=== PATIENT | male | born 1980 | race Caucasian/White ===

== ENCOUNTER 2024-01-18 10:21 | Inpatient (IN) | payer MEDICAID, OTHER ==
[~2024-01-18] VITALS: Ht 170.2 cm; Wt 61.3 kg
[2024-01-18 11:03] LABS: HEMATOCRIT. 30.1 % (42.0-52.0); MEAN CORPUSCULAR HEMOGLOBIN 29.5 pg (28.0-32.0); MEAN CORPUSCULAR HGB CONC 33.3 g/dL (31.0-37.0); MEAN CORPUSCULAR VOLUME 88.6 fL (80.0-94.0); PLATELET 268 x1000/uL (130-400); RED CELL DISTRIBUTION WIDTH 14.1 % (11.6-14.6); WHITE BLOOD COUNT 9.3 x1000/uL (4.5-11.0)
[2024-01-18 11:07] LABS: DIFFERENTIAL COMMENT 1
[2024-01-18 11:15] LABS: CARBON DIOXIDE 14 mEq/L (21-32); CHLORIDE 109 mEq/L (98-107); SODIUM 132 mEq/L (136-145)
[2024-01-18 11:20] LABS: CREATININE 2.9 mg/dL (0.6-1.3)
[2024-01-18 11:21] LABS: D-DIMER 6.36 mg/L FEU (<0.50); GLUCOSE 137 mg/dL (70-105); PARTIAL THROMBOPLASTIN TIME 33.3 sec (23.4-31.0); PROTHROMBIN TIME 10.7 sec (9.6-11.0); UREA NITROGEN BLOOD 40 mg/dL (9-23)
[2024-01-18] MEDS: HYDRALAZINE 20MG/ML VIAL IV ONE (11:21)
[2024-01-18 11:22] LABS: ALANINE AMINOTRANSFERASE < 7 IU/L (10-49); ALBUMIN 2.3 g/dL (3.2-4.8); ASPARTATE AMINOTRANSFERASE 21 IU/L (<34); CREATINE KINASE 224 IU/L (46-171); LACTATE DEHYDROGENASE 316 IU/L (120-246)
[2024-01-18 11:23] LABS: BILIRUBIN TOTAL 0.3 mg/dL (0.1-1.0); PROTEIN TOTAL 5.2 g/dL (6.0-8.3)
[2024-01-18 11:25] LABS: BILIRUBIN DIRECT < 0.1 mg/dL (<=3.0)
[2024-01-18 11:28] LABS: ETHANOL BLOOD < 10 mg/dL (<10)
[2024-01-18] MEDS ORDERED: NITROGLYCERIN 50MG PREMIX 250 ML IV ONE (11:30)
[2024-01-18] MEDS: AZITHROMYCIN 500MG/250ML 250 ML IV SCH (11:56)
[2024-01-18] MEDS: FUROSEMIDE 40MG/4ML VIAL IVP ONE (11:56)
[2024-01-18] MEDS: CEFTRIAXONE 2GM/50ML 50 ML IV ONE (11:57)
[2024-01-18 11:59] LABS: PLATELET ESTIMATE NORMAL
[2024-01-18 12:00] LABS: BG BASE EXCESS -9.8 mmol/L (-2.0-2.0); BG CARBOXYHEMOGLOBIN 0.2 % (0.5-1.5); BG DEOXYHEMOGLOBIN 1.6 % (0.0-5.0); BG FRACTION INSPIRED OXYGEN 100; BG HCO3 ACT 16.1 mmol/L (22.0-26.0); BG METHEMOGLOBIN 0.1 % (0.0-1.5); BG OXYGEN SATURATION 98.4 % (92.0-98.5); BG OXYHEMOGLOBIN 98.1 % (94.0-97.0); BG PCO2 35.1 mmHg (35.0-45.0); BG PH 7.279 (7.350-7.450); BG PO2 220.4 mmHg (75.0-100.0); BG SAMPLE SITE RIGHT BRACHIAL; BG TOTAL HEMOGLOBIN 9.8 g/dL (12.0-18.0); BG VENT MODE MASK - NRB
[2024-01-18] MEDS ORDERED: NITROGLYCERIN 50MG PREMIX 250 ML IV PRN (12:00)
[2024-01-18] MEDS: NITROGLYCERIN 50MG PREMIX 250 ML IV ONE (12:13)
[2024-01-18 14:41] LABS: TROPONIN I HIGH SENSITIVITY 64 ng/L (3.0-53)
[2024-01-18 14:49] VITALS: BP 133/85; PULSE 90; RESP 14; TEMP 98.5
[2024-01-18] MEDS ORDERED: DIPHENHYDRAMINE 50MG/ML VIAL IV PRN (15:00)
[2024-01-18] MEDS ORDERED: IPRATROPIUM/ALBUTEROL 0.5-3(2.5)MG/3ML NEB HHN PRN (15:00)
[2024-01-18 15:15] VITALS: BP 133/85; PULSE 87; RESP 14; TEMP 98.4
[2024-01-18 15:45] LABS: TROPONIN I HIGH SENSITIVITY 58 ng/L (3.0-53)
[2024-01-18] MEDS: SODIUM CHLORIDE 0.9% 1,000 ML IV SCH ×2 (15:50→16:24)
[2024-01-18 16:00] VITALS: BP 169/69; PULSE 84; RESP 11; TEMP 97.8
[2024-01-18] MEDS ORDERED: INFLUENZA VACCINE 05/PF 0.5 ML SYRINGE IM ONE (16:00)
[2024-01-18] MEDS: SODIUM BICARBONATE 8.4% 1 MEQ/ML 50ML SYR IV NR (16:36)
[2024-01-18] MEDS: CLONIDINE 0.1MG TABLET PO PRN (16:37)
[2024-01-18 18:07] LABS: CREATINE KINASE 224 IU/L (46-171)
[2024-01-18 18:08] LABS: PHOSPHORUS 6.1 mg/dL (2.5-4.9)
[2024-01-18 19:49] LABS: CLARITY URINE TURBID (CLEAR); COLOR URINE YELLOW (YELLOW); GLUCOSE URINE 1+ (NEGATIVE); KETONES URINE NEGATIVE (NEGATIVE); LEUKOCYTE ESTERASE URINE TRACE (NEGATIVE); NITRITE URINE NEGATIVE (NEGATIVE); OCCULT BLOOD URINE 1+ (NEGATIVE); PH URINE 5.5 (4.5-8.0); PROTEIN URINE 4+ (NEGATIVE); SPECIFIC GRAVITY URINE 1.015 (1.005-1.030); UROBILINOGEN URINE 0.2 E.U./dL (0.2-1.0)
[2024-01-18 20:00] VITALS: BP_SYST 147; BP_DIAS 100; BP_DIAS 85; PULSE 84; RESP 17; RESP 23; TEMP 96.7; TEMP 98.4
[2024-01-18 20:01] LABS: *AMPHETAMINES SCREEN URINE NEGATIVE (NEGATIVE)
[2024-01-18 20:02] LABS: *BARBITURATES SCREEN URINE NEGATIVE (NEGATIVE); *BENZODIAZEPINES SCREEN URINE NEGATIVE (NEGATIVE); *COCAINE SCREEN URINE NEGATIVE (NEGATIVE); ECSTASY MDMA SCREEN URINE NEGATIVE (NEGATIVE); METHADONE URINE SCREEN NEGATIVE (NEGATIVE); OPIATES URINE SCREEN NEGATIVE (NEGATIVE); PHENCYCLIDINE URINE SCREEN NEGATIVE (NEGATIVE)
[2024-01-18 20:03] LABS: CREATININE URINE RANDOM 49.2 mg/dL
[2024-01-18 20:27] LABS: COARSE GRANULAR CASTS URINE 0-5 /lpf; FINE GRANULAR CASTS URINE 0-5 /lpf; HYALINE CASTS URINE 0-5 /lpf
[2024-01-18 20:28] LABS: RBC URINE 0-2 /hpf (0-2); WAXY CASTS URINE 0-5 /lpf
[2024-01-18 20:29] LABS: BACTERIA URINE 2+; SQUAMOUS EPITHELIAL CELL URINE 2+ /lpf (RARE/1+)
[2024-01-18 23:18] LABS: CREATINE KINASE 207 IU/L (46-171)
[2024-01-18 23:22] LABS: TROPONIN I HIGH SENSITIVITY 65 ng/L (3.0-53)
[2024-01-19 00:08] VITALS: BP 158/84; PULSE 87; RESP 17
[2024-01-19 04:00] VITALS: PULSE 85; RESP 17; TEMP 97.6
[2024-01-19 05:13] LABS: POTASSIUM 4.6 mEq/L (3.5-5.1)
[2024-01-19 05:15] LABS: CALCIUM 7.8 mg/dL (8.7-10.4)
[2024-01-19 05:19] LABS: BASOPHILS % 0.2 % (0.0-2.0); CREATININE 2.7 mg/dL (0.6-1.3); EOSINOPHILS % 1.1 % (0.0-5.0); HEMATOCRIT. 25.2 % (42.0-52.0); HEMOGLOBIN. 8.3 g/dL (14.0-18.0); LYMPHOCYTES % 14.4 % (20.0-50.0); MEAN CORPUSCULAR HEMOGLOBIN 29.1 pg (28.0-32.0); MEAN CORPUSCULAR HGB CONC 32.9 g/dL (31.0-37.0); MEAN CORPUSCULAR VOLUME 88.4 fL (80.0-94.0); MEAN PLATELET VOLUME 7.1 fl (7.4-10.4); MONOCYTES % 7.2 % (2.0-8.0); NEUTROPHILS % 77.1 % (40.0-76.0); PLATELET 232 x1000/uL (130-400); RED BLOOD CELL COUNT 2.85 mill/uL (4.7-6.1); RED CELL DISTRIBUTION WIDTH 13.9 % (11.6-14.6); WHITE BLOOD COUNT 8.4 x1000/uL (4.5-11.0)
[2024-01-19 08:00] VITALS: BP 156/88; PULSE 90; RESP 20; TEMP 97.1
[2024-01-19] MEDS: AMLODIPINE 5MG TABLET PO SCH (10:17)
[2024-01-19] MEDS: CARVEDILOL 3.125 MG TABLET PO SCH (10:17)
[2024-01-19] MEDS ORDERED: FUROSEMIDE 40MG/4ML VIAL IVP SCH (11:14)
[2024-01-19] MEDS: FUROSEMIDE 40MG/4ML VIAL IVP SCH (11:22)
[2024-01-19] MEDS: CEFTRIAXONE 1GM/50ML 50 ML IV SCH (11:23)
[2024-01-19 12:00] VITALS: BP 176/91; PULSE 63; RESP 18; TEMP 97.1
[2024-01-19] MEDS: AZITHROMYCIN 500MG/250ML IV SCH (12:03)
[2024-01-19 16:00] VITALS: BP 135/90; PULSE 54; RESP 17; TEMP 97.1
[2024-01-19] MEDS: ACETAMINOPHEN 325MG TABLET PO PRN (16:20)
[2024-01-19 16:29] LABS: CREATININE URINE RANDOM 28.2 mg/dL
[2024-01-19] MEDS: FUROSEMIDE 100MG/10ML VIAL IVP SCH (17:32)
[2024-01-19 20:00] VITALS: BP 146/89; PULSE 55; RESP 12; TEMP 92.2
[2024-01-20] VITALS (8 sets, daily range): BP systolic 148–171; BP diastolic 82–100; PULSE 55–71; RESP 10–15; TEMP 94–97.9
[2024-01-20 06:33] LABS: BASOPHILS % 0.2 % (0.0-2.0); EOSINOPHILS % 5.6 % (0.0-5.0); HEMATOCRIT. 25.7 % (42.0-52.0); HEMOGLOBIN. 8.9 g/dL (14.0-18.0); LYMPHOCYTES % 12.3 % (20.0-50.0); MEAN CORPUSCULAR HEMOGLOBIN 30.1 pg (28.0-32.0); MEAN CORPUSCULAR HGB CONC 34.5 g/dL (31.0-37.0); MEAN CORPUSCULAR VOLUME 87.1 fL (80.0-94.0); MEAN PLATELET VOLUME 7.6 fl (7.4-10.4); MONOCYTES % 8.2 % (2.0-8.0); NEUTROPHILS % 73.7 % (40.0-76.0); PLATELET 257 x1000/uL (130-400); RED BLOOD CELL COUNT 2.95 mill/uL (4.7-6.1); RED CELL DISTRIBUTION WIDTH 13.7 % (11.6-14.6)
[2024-01-20 06:36] LABS: POTASSIUM 4.2 mEq/L (3.5-5.1)
[2024-01-20 06:37] LABS: CALCIUM 7.5 mg/dL (8.7-10.4)
[2024-01-20 06:42] LABS: CREATININE 2.6 mg/dL (0.6-1.3)
[2024-01-20 13:06] LABS: ANTI-NUCLEAR ANTIBODIES DIRECT Negative (Negative)
[2024-01-20] MEDS: HYDRALAZINE HCL 100MG TABLET PO SCH (14:11)
[2024-01-20] MEDS: ONDANSETRON HCL 4MG/2ML INJ IV PRN (15:37)
[2024-01-20] MEDS: LACTOBACILLUS GG CAPSULE PO SCH (18:09)
[2024-01-21] VITALS (7 sets, daily range): BP systolic 97–163; BP diastolic 61–99; PULSE 59–79; RESP 9–23; TEMP 94.6–98.3
[2024-01-21 06:47] LABS: CALCIUM 7.5 mg/dL (8.7-10.4); POTASSIUM 3.9 mEq/L (3.5-5.1)
[2024-01-21 06:52] LABS: CREATININE 2.6 mg/dL (0.6-1.3)
[2024-01-21 07:12] LABS: BASOPHILS % 0.4 % (0.0-2.0); EOSINOPHILS % 6.8 % (0.0-5.0); HEMATOCRIT. 27.9 % (42.0-52.0); HEMOGLOBIN. 9.6 g/dL (14.0-18.0); LYMPHOCYTES % 23.8 % (20.0-50.0); MEAN CORPUSCULAR HEMOGLOBIN 29.9 pg (28.0-32.0); MEAN CORPUSCULAR HGB CONC 34.3 g/dL (31.0-37.0); MEAN CORPUSCULAR VOLUME 87.1 fL (80.0-94.0); MONOCYTES % 9.5 % (2.0-8.0); NEUTROPHILS % 59.5 % (40.0-76.0); PLATELET 249 x1000/uL (130-400); RED CELL DISTRIBUTION WIDTH 13.8 % (11.6-14.6); WHITE BLOOD COUNT 3.9 x1000/uL (4.5-11.0)
[2024-01-21 08:08] LABS: COMPLEMENT C3 98 mg/dL (82-167); COMPLEMENT C4 51 mg/dL (12-38)
[2024-01-21] MEDS: CITRIC ACID/SODIUM CITRATE SOLN 30ML UDC PO SCH (08:39)
[2024-01-21 09:56] LABS: IRON 59 ug/dL (65-175)
[2024-01-21 09:59] LABS: TOTAL IRON BINDING CAPACITY 311 ug/dl (250-425)
[2024-01-21] MEDS: AZITHROMYCIN 500 MG TABLET PO SCH (11:29)
[2024-01-21] MEDS: FUROSEMIDE 100MG/10ML VIAL IVP SCH (16:53)
[2024-01-22] VITALS (7 sets, daily range): BP systolic 140–166; BP diastolic 88–98; PULSE 68–81; RESP 12–20; TEMP 95.2–98
[2024-01-22 07:22] LABS: BASOPHILS % 0.5 % (0.0-2.0); EOSINOPHILS % 5.2 % (0.0-5.0); HEMATOCRIT. 27.6 % (42.0-52.0); HEMOGLOBIN. 9.3 g/dL (14.0-18.0); LYMPHOCYTES % 23.8 % (20.0-50.0); MEAN CORPUSCULAR HEMOGLOBIN 29.4 pg (28.0-32.0); MEAN CORPUSCULAR HGB CONC 33.7 g/dL (31.0-37.0); MEAN CORPUSCULAR VOLUME 87.1 fL (80.0-94.0); MEAN PLATELET VOLUME 7.4 fl (7.4-10.4); MONOCYTES % 8.5 % (2.0-8.0); PLATELET 284 x1000/uL (130-400); RED BLOOD CELL COUNT 3.17 mill/uL (4.7-6.1); RED CELL DISTRIBUTION WIDTH 13.7 % (11.6-14.6)
[2024-01-22 07:29] LABS: POTASSIUM 3.6 mEq/L (3.5-5.1)
[2024-01-22 07:30] LABS: CALCIUM 7.6 mg/dL (8.7-10.4)
[2024-01-22 07:36] LABS: CREATININE 2.7 mg/dL (0.6-1.3)
[2024-01-22] MEDS: METOLAZONE 2.5MG TABLET PO SCH (08:46)
[2024-01-22] MEDS ORDERED: CEFEPIME 2GM IN DEXT 5% 100ML IV SCH (11:15)
[2024-01-22 13:37] LABS: FERRITIN 210 ng/mL (22-322)
[2024-01-22 14:30] LABS: VITAMIN B12 SERUM > 2000 pg/mL (211-911)
[2024-01-22 17:31] LABS: HEPATITIS B SURFACE ANTIGEN NEGATIVE (Negative)
[2024-01-22 17:53] LABS: HEPATITIS C AB NON REACTIVE (Neg) (Negative)
[2024-01-22] MEDS: CEFEPIME 2GM/100ML 100 ML IV SCH (21:13)
[2024-01-23] VITALS: BP 139/86; PULSE 71; RESP 12; TEMP 97.7
[2024-01-23 04:00] VITALS: BP 122/89; PULSE 76; RESP 15; TEMP 97.8
[2024-01-23 06:10] LABS: CHLORIDE 104 mEq/L (98-107); POTASSIUM 3.6 mEq/L (3.5-5.1); SODIUM 134 mEq/L (136-145)
[2024-01-23 06:11] LABS: CALCIUM 7.6 mg/dL (8.7-10.4); CARBON DIOXIDE 22 mEq/L (21-32)
[2024-01-23 06:16] LABS: BASOPHILS % 0.5 % (0.0-2.0); CREATININE 2.6 mg/dL (0.6-1.3); EOSINOPHILS % 7.6 % (0.0-5.0); GLUCOSE 116 mg/dL (70-105); HEMATOCRIT. 25.8 % (42.0-52.0); HEMOGLOBIN. 8.8 g/dL (14.0-18.0); LYMPHOCYTES % 29.9 % (20.0-50.0); MEAN CORPUSCULAR HEMOGLOBIN 29.6 pg (28.0-32.0); MEAN CORPUSCULAR HGB CONC 34.1 g/dL (31.0-37.0); MEAN CORPUSCULAR VOLUME 86.7 fL (80.0-94.0); MONOCYTES % 8.9 % (2.0-8.0); NEUTROPHILS % 53.1 % (40.0-76.0); PLATELET 295 x1000/uL (130-400); RED BLOOD CELL COUNT 2.98 mill/uL (4.7-6.1); RED CELL DISTRIBUTION WIDTH 13.9 % (11.6-14.6); UREA NITROGEN BLOOD 44 mg/dL (9-23); WHITE BLOOD COUNT 3.6 x1000/uL (4.5-11.0)
[2024-01-23 06:17] LABS: ALANINE AMINOTRANSFERASE < 7 IU/L (10-49)
[2024-01-23 06:18] LABS: ALBUMIN 2.4 g/dL (3.2-4.8); ASPARTATE AMINOTRANSFERASE 13 IU/L (<34); BILIRUBIN TOTAL 0.2 mg/dL (0.1-1.0); PROTEIN TOTAL 4.9 g/dL (6.0-8.3)
[2024-01-23 08:00] VITALS: BP 151/90; PULSE 70; RESP 18; TEMP 98
[2024-01-23 12:00] VITALS: BP 133/90; PULSE 64; RESP 9; TEMP 98
[2024-01-23 16:00] VITALS: BP 93/65; PULSE 57; RESP 9; TEMP 98.1
[2024-01-23 20:00] VITALS: BP 161/96; PULSE 59; RESP 16; TEMP 92.7
[2024-01-23] MEDS: FUROSEMIDE 100MG/10ML VIAL IVP SCH (21:53)
[2024-01-24] VITALS: BP 97/65; PULSE 68; RESP 18; TEMP 97.6
[2024-01-24 04:00] VITALS: BP 114/74; PULSE 76; RESP 14; TEMP 98.4
[2024-01-24 06:05] LABS: POTASSIUM 3.5 mEq/L (3.5-5.1)
[2024-01-24 06:06] LABS: CALCIUM 7.3 mg/dL (8.7-10.4)
[2024-01-24 06:11] LABS: CREATININE 2.9 mg/dL (0.6-1.3)
[2024-01-24 06:26] LABS: BASOPHILS % 0.6 % (0.0-2.0); EOSINOPHILS % 6.9 % (0.0-5.0); HEMATOCRIT. 25.2 % (42.0-52.0); HEMOGLOBIN. 8.5 g/dL (14.0-18.0); LYMPHOCYTES % 26.7 % (20.0-50.0); MEAN CORPUSCULAR HEMOGLOBIN 29.3 pg (28.0-32.0); MEAN CORPUSCULAR HGB CONC 33.8 g/dL (31.0-37.0); MEAN CORPUSCULAR VOLUME 86.5 fL (80.0-94.0); MEAN PLATELET VOLUME 7.1 fl (7.4-10.4); MONOCYTES % 9.6 % (2.0-8.0); NEUTROPHILS % 56.2 % (40.0-76.0); PLATELET 317 x1000/uL (130-400); RED BLOOD CELL COUNT 2.91 mill/uL (4.7-6.1); RED CELL DISTRIBUTION WIDTH 13.6 % (11.6-14.6); WHITE BLOOD COUNT 3.3 x1000/uL (4.5-11.0)
[2024-01-24 08:00] VITALS: BP 131/84; PULSE 78; RESP 18
[2024-01-24] MEDS: AMLODIPINE 10MG TABLET PO SCH (09:20)
[2024-01-24 12:00] VITALS: BP 114/80; PULSE 75; RESP 18; TEMP 97.8
[2024-01-24 16:00] VITALS: BP 128/80; PULSE 67; RESP 16; TEMP 97.5
[2024-01-24] MEDS ORDERED: GUAIFENESIN 200MG/10ML SUGAR FREE UDC PO PRN (19:45)
[2024-01-24 20:00] VITALS: BP 106/77; PULSE 73; RESP 14; TEMP 93.7
[2024-01-25] VITALS: BP 132/85; PULSE 76; RESP 18; TEMP 97.7
[2024-01-25 04:00] VITALS: BP 142/97; PULSE 76; RESP 24; TEMP 97.6
[2024-01-25] MEDS: FUROSEMIDE 40MG/4ML VIAL IVP SCH (06:06)
[2024-01-25 06:21] LABS: BASOPHILS % 0.6 % (0.0-2.0); EOSINOPHILS % 6.3 % (0.0-5.0); HEMATOCRIT. 24.7 % (42.0-52.0); HEMOGLOBIN. 8.4 g/dL (14.0-18.0); LYMPHOCYTES % 30.4 % (20.0-50.0); MEAN CORPUSCULAR HEMOGLOBIN 29.3 pg (28.0-32.0); MEAN CORPUSCULAR VOLUME 86.1 fL (80.0-94.0); MEAN PLATELET VOLUME 7.3 fl (7.4-10.4); MONOCYTES % 11.6 % (2.0-8.0); NEUTROPHILS % 51.1 % (40.0-76.0); PLATELET 347 x1000/uL (130-400); RED BLOOD CELL COUNT 2.87 mill/uL (4.7-6.1); RED CELL DISTRIBUTION WIDTH 13.4 % (11.6-14.6); WHITE BLOOD COUNT 3.6 x1000/uL (4.5-11.0)
[2024-01-25 06:24] LABS: POTASSIUM 3.3 mEq/L (3.5-5.1)
[2024-01-25 06:26] LABS: CALCIUM 7.6 mg/dL (8.7-10.4)
[2024-01-25 06:30] LABS: CREATININE 2.9 mg/dL (0.6-1.3)
[2024-01-25 12:00] VITALS: BP 137/98; PULSE 73; RESP 22; TEMP 97.8
[2024-01-25 16:00] VITALS: BP 117/82; PULSE 67; RESP 10; TEMP 98
[2024-01-25 20:00] VITALS: BP 122/76; PULSE 64; RESP 15; TEMP 94
[2024-01-25] MEDS: POTASSIUM CHLORIDE 20MEQ TABLET SR PO NR (20:19)
[2024-01-25 23:13] VITALS: BP 114/67; PULSE 71; RESP 14; TEMP 97.2
[2024-01-26 04:19] VITALS: BP 129/84; PULSE 70; RESP 17; TEMP 97.8
[2024-01-26 06:37] LABS: POTASSIUM 3.2 mEq/L (3.5-5.1)
[2024-01-26 06:39] LABS: CALCIUM 7.6 mg/dL (8.7-10.4)
[2024-01-26 06:44] LABS: CREATININE 2.9 mg/dL (0.6-1.3)
[2024-01-26 06:50] LABS: BASOPHILS % 0.6 % (0.0-2.0); HEMATOCRIT. 24.5 % (42.0-52.0); HEMOGLOBIN. 8.2 g/dL (14.0-18.0); LYMPHOCYTES % 26.7 % (20.0-50.0); MEAN CORPUSCULAR HEMOGLOBIN 28.8 pg (28.0-32.0); MEAN CORPUSCULAR HGB CONC 33.4 g/dL (31.0-37.0); MEAN CORPUSCULAR VOLUME 86.1 fL (80.0-94.0); MEAN PLATELET VOLUME 7.2 fl (7.4-10.4); MONOCYTES % 11.4 % (2.0-8.0); NEUTROPHILS % 54.3 % (40.0-76.0); PLATELET 361 x1000/uL (130-400); RED BLOOD CELL COUNT 2.85 mill/uL (4.7-6.1); RED CELL DISTRIBUTION WIDTH 13.5 % (11.6-14.6)
[2024-01-26 08:00] VITALS: BP 140/84; PULSE 68; RESP 19; TEMP 97.8
[2024-01-26 12:00] VITALS: BP 130/84; PULSE 70; RESP 17; TEMP 97.8
[2024-01-26] MEDS: POTASSIUM CHLORIDE 20MEQ TABLET SR PO SCH (12:55)
[2024-01-26 16:00] VITALS: BP 104/72; PULSE 64; RESP 12; TEMP 96.3
[2024-01-26 20:00] VITALS: BP 140/90; PULSE 65; RESP 15; TEMP 97.9
[2024-01-27] VITALS: BP 133/79; PULSE 71; RESP 14; TEMP 98.3
[2024-01-27 04:00] VITALS: BP 133/87; PULSE 67; RESP 18; TEMP 98
[2024-01-27 06:43] LABS: BASOPHILS % 0.6 % (0.0-2.0); EOSINOPHILS % 6.6 % (0.0-5.0); HEMATOCRIT. 24.2 % (42.0-52.0); HEMOGLOBIN. 8.2 g/dL (14.0-18.0); LYMPHOCYTES % 30.1 % (20.0-50.0); MEAN CORPUSCULAR HEMOGLOBIN 29.1 pg (28.0-32.0); MEAN CORPUSCULAR HGB CONC 34.1 g/dL (31.0-37.0); MEAN CORPUSCULAR VOLUME 85.2 fL (80.0-94.0); MEAN PLATELET VOLUME 7.3 fl (7.4-10.4); MONOCYTES % 11.6 % (2.0-8.0); NEUTROPHILS % 51.1 % (40.0-76.0); PLATELET 393 x1000/uL (130-400); RED BLOOD CELL COUNT 2.84 mill/uL (4.7-6.1); RED CELL DISTRIBUTION WIDTH 13.5 % (11.6-14.6); WHITE BLOOD COUNT 3.9 x1000/uL (4.5-11.0)
[2024-01-27 06:55] LABS: POTASSIUM 3.5 mEq/L (3.5-5.1)
[2024-01-27 06:57] LABS: CALCIUM 7.5 mg/dL (8.7-10.4)
[2024-01-27 08:00] VITALS: BP 131/86; PULSE 70; RESP 19; TEMP 97.3
[2024-01-27 12:00] VITALS: BP 124/76; PULSE 71; RESP 18; TEMP 97.5
[2024-01-27 16:00] VITALS: BP 99/62; PULSE 68; RESP 13; TEMP 97.6
[2024-01-27] MEDS: BUMETANIDE 1MG/4ML VIAL IV SCH (18:39)
[2024-01-27 20:00] VITALS: BP 103/74; PULSE 68; RESP 14; TEMP 97.6
[2024-01-28] VITALS: BP 119/85; PULSE 74; RESP 14; TEMP 97.9
[2024-01-28 04:00] VITALS: BP 118/70; PULSE 78; RESP 16; TEMP 97.8
[2024-01-28 08:00] VITALS: BP 113/88; PULSE 69; RESP 12; TEMP 97.9
[2024-01-28 11:57] LABS: BASOPHILS % 0.7 % (0.0-2.0); EOSINOPHILS % 4.1 % (0.0-5.0); HEMATOCRIT. 23.7 % (42.0-52.0); HEMOGLOBIN. 8.1 g/dL (14.0-18.0); LYMPHOCYTES % 15.9 % (20.0-50.0); MEAN CORPUSCULAR HEMOGLOBIN 29.3 pg (28.0-32.0); MEAN CORPUSCULAR HGB CONC 34.1 g/dL (31.0-37.0); MEAN PLATELET VOLUME 7.3 fl (7.4-10.4); NEUTROPHILS % 69.3 % (40.0-76.0); PLATELET 390 x1000/uL (130-400); RED BLOOD CELL COUNT 2.76 mill/uL (4.7-6.1); RED CELL DISTRIBUTION WIDTH 13.1 % (11.6-14.6); WHITE BLOOD COUNT 5.6 x1000/uL (4.5-11.0)
[2024-01-28 12:22] LABS: POTASSIUM 3.6 mEq/L (3.5-5.1)
[2024-01-28 12:23] LABS: CALCIUM 7.5 mg/dL (8.7-10.4)
[2024-01-28 12:28] LABS: CREATININE 3.1 mg/dL (0.6-1.3)
[2024-01-28 15:18] VITALS: BP 107/86; PULSE 64; RESP 11; TEMP 96.7; TEMP 98
[2024-01-28] MEDS ORDERED: HYDR100T26 PO (15:38)
[2024-01-28] MEDS ORDERED: BUME2TAB34 MT (15:38)
[2024-01-28] MEDS ORDERED: AMLO10TA80 PO (15:38)
[2024-01-28] MEDS ORDERED: METO2.5T2 PO (15:38)
[2024-01-28] MEDS ORDERED: COR3 PO (15:38)
[2024-01-28 20:00] VITALS: BP 135/80; PULSE 92; RESP 22; TEMP 97.7
[2024-01-29] VITALS (11 sets, daily range): BP systolic 78–127; BP diastolic 49–87; PULSE 56–79; RESP 11–16; TEMP 97.6–98
[2024-01-29 07:06] LABS: BASOPHILS % 0.7 % (0.0-2.0); HEMATOCRIT. 25.4 % (42.0-52.0); HEMOGLOBIN. 8.5 g/dL (14.0-18.0); LYMPHOCYTES % 21.6 % (20.0-50.0); MEAN CORPUSCULAR HGB CONC 33.7 g/dL (31.0-37.0); MEAN CORPUSCULAR VOLUME 86.1 fL (80.0-94.0); MEAN PLATELET VOLUME 7.4 fl (7.4-10.4); MONOCYTES % 9.1 % (2.0-8.0); NEUTROPHILS % 63.6 % (40.0-76.0); PLATELET 417 x1000/uL (130-400); RED BLOOD CELL COUNT 2.95 mill/uL (4.7-6.1); RED CELL DISTRIBUTION WIDTH 13.5 % (11.6-14.6); WHITE BLOOD COUNT 4.9 x1000/uL (4.5-11.0)
[2024-01-29 07:40] LABS: POTASSIUM 3.7 mEq/L (3.5-5.1)
[2024-01-29 07:41] LABS: CALCIUM 7.7 mg/dL (8.7-10.4)
[2024-01-29 07:46] LABS: CREATININE 3.1 mg/dL (0.6-1.3); INR 1.1; PROTHROMBIN TIME 11.8 sec (9.6-11.0)
[2024-01-29 08:01] LABS: HEPATITIS B SURFACE ANTIGEN NEGATIVE (Negative)
[2024-01-29 08:21] LABS: HEPATITIS A AB IGM NEGATIVE (Negative)
[2024-01-29 08:22] LABS: HEPATITIS B CORE AB IGM NEGATIVE (Negative); HEPATITIS C AB NON REACTIVE (Neg) (Negative)
[2024-01-29] MEDS ORDERED: LIDOCAINE HCL 1% 10 MG/ML 10ML VIAL ONE (08:22)
[2024-01-30] VITALS (11 sets, daily range): BP systolic 68–119; BP diastolic 51–77; PULSE 59–71; RESP 11–18; TEMP 97.6–98.2
[2024-01-31 07:33] LABS: POTASSIUM 4.2 mEq/L (3.5-5.1)
[2024-01-31 07:34] LABS: CALCIUM 7.4 mg/dL (8.7-10.4); HEMATOCRIT. 23.4 % (42.0-52.0); HEMOGLOBIN. 7.9 g/dL (14.0-18.0); MEAN CORPUSCULAR HEMOGLOBIN 29.6 pg (28.0-32.0); MEAN CORPUSCULAR HGB CONC 33.9 g/dL (31.0-37.0); MEAN CORPUSCULAR VOLUME 87.3 fL (80.0-94.0); MEAN PLATELET VOLUME 7.5 fl (7.4-10.4); PLATELET 367 x1000/uL (130-400); RED BLOOD CELL COUNT 2.67 mill/uL (4.7-6.1); RED CELL DISTRIBUTION WIDTH 13.8 % (11.6-14.6); WHITE BLOOD COUNT 13.9 x1000/uL (4.5-11.0)
[2024-01-31 07:39] LABS: CREATININE 3.4 mg/dL (0.6-1.3)
[2024-01-31 08:17] LABS: DIFFERENTIAL COMMENT 1
[2024-01-31 09:00] VITALS: BP_SYST 115; BP_SYST 118; BP_DIAS 62; BP_DIAS 80; PULSE 66; PULSE 68; RESP 18; TEMP 98
[2024-01-31 10:00] VITALS: BP 115/79; PULSE 67
[2024-01-31 11:00] VITALS: BP_SYST 114; BP_SYST 118; BP_DIAS 71; BP_DIAS 73; PULSE 63; PULSE 69; RESP 19
[2024-01-31 16:51] LABS: PLATELET ESTIMATE NORMAL
[2024-01-31] MEDS: CALCIUM ACETATE 667MG CAPSULE PO SCH (17:20)
[2024-01-31] MEDS: EPOETIN ALFA 4000UNITS/ML VIAL SUBCUT SCH (23:03)
[2024-02-01 06:46] LABS: EOSINOPHILS % 3.2 % (0.0-5.0); HEMATOCRIT. 23.6 % (42.0-52.0); LYMPHOCYTES % 26.5 % (20.0-50.0); MEAN CORPUSCULAR HEMOGLOBIN 29.5 pg (28.0-32.0); MEAN CORPUSCULAR HGB CONC 33.9 g/dL (31.0-37.0); MEAN CORPUSCULAR VOLUME 86.9 fL (80.0-94.0); MEAN PLATELET VOLUME 7.8 fl (7.4-10.4); MONOCYTES % 8.3 % (2.0-8.0); PLATELET 374 x1000/uL (130-400); RED BLOOD CELL COUNT 2.71 mill/uL (4.7-6.1); RED CELL DISTRIBUTION WIDTH 13.8 % (11.6-14.6); WHITE BLOOD COUNT 4.9 x1000/uL (4.5-11.0)
[2024-02-01 07:28] LABS: POTASSIUM 4.4 mEq/L (3.5-5.1)
[2024-02-01 07:29] LABS: CALCIUM 7.7 mg/dL (8.7-10.4)
[2024-02-01 07:34] LABS: CREATININE 3.4 mg/dL (0.6-1.3)
[2024-02-01 13:50] VITALS: BP 109/73; PULSE 79; TEMP 98.2; O2SAT 96
== END 2024-02-01 15:06 | disposition home or self-care (01) | DRG 720 ==
LOC: ER 10:34 → 3WST 12:41 → EDBEDREQ 12:42 → EDBEDREQTM 12:42
PROVIDERS: ADMIT Internal Medicine; ATTEND Internal Medicine
PROC: 02HV33Z Insertion of Infusion Device into Superior Vena Cava, Percutaneous Approach (ICD-10-PCS; principal; 2024-01-29)
PROC: B5181ZA Fluoroscopy of Superior Vena Cava using Low Osmolar Contrast, Guidance (ICD-10-PCS; 2024-01-29)
PROC: B548ZZA Ultrasonography of Superior Vena Cava, Guidance (ICD-10-PCS; 2024-01-29)
PROC: 5A1D70Z Performance of Urinary Filtration, Intermittent, Less than 6 Hours Per Day (ICD-10-PCS; 2024-01-29)
PROC: 5A1D70Z Performance of Urinary Filtration, Intermittent, Less than 6 Hours Per Day (ICD-10-PCS; 2024-01-30)
PROC: 5A1D70Z Performance of Urinary Filtration, Intermittent, Less than 6 Hours Per Day (ICD-10-PCS; 2024-01-31)
DX: A41.59 Other Gram-negative sepsis (principal); J96.01 Acute respiratory failure with hypoxia; N17.0 Acute kidney failure with tubular necrosis; I50.33 Acute on chronic diastolic (congestive) heart failure; E87.20 Acidosis, unspecified; J18.9 Pneumonia, unspecified organism; N18.6 End stage renal disease; E87.1 Hypo-osmolality and hyponatremia; I21.A1 Myocardial infarction type 2; E88.09 Other disorders of plasma-protein metabolism, not elsewhere classified; M62.82 Rhabdomyolysis; N04.9 Nephrotic syndrome with unspecified morphologic changes; R18.8 Other ascites; I27.21 Secondary pulmonary arterial hypertension; I13.2 Hypertensive heart and chronic kidney disease with heart failure and with stage 5 chronic kidney disease, or end stage renal disease; Z20.822 Contact with and (suspected) exposure to COVID-19; D64.9 Anemia, unspecified; N39.0 Urinary tract infection, site not specified; I16.0 Hypertensive urgency; R80.9 Proteinuria, unspecified; E11.22 Type 2 diabetes mellitus with diabetic chronic kidney disease; S41.011A Laceration without foreign body of right shoulder, initial encounter; B96.20 Unspecified Escherichia coli [E. coli] as the cause of diseases classified elsewhere; E11.65 Type 2 diabetes mellitus with hyperglycemia; K76.9 Liver disease, unspecified; M06.9 Rheumatoid arthritis, unspecified; X58.XXXA Exposure to other specified factors, initial encounter; Y93.89 Activity, other specified; Y92.89 Other specified places as the place of occurrence of the external cause; Y99.8 Other external cause status
CPT/HCPCS: 36415; 36556; 36600; 71045; 74176; 76770; 76937; 77001; 78580; 80048; 80053; 80061; 80076; 80305; 80320; 81003; 82040; 82375; 82550; 82570; 82607; 82728; 82746; 82805; 82962; 83540; 83550; 83605; 83615; 83735; 83880; 84100; 84145; 84156; 84300; 84484; 85025; 85379; 86038; 86160; 86592; 86705; 86709; 86850; 86900; 87077; 87186; 87340; 87426; 87804; 90935; 93005; 93306; 93970; 99285; C1752; J0360; J0456; J0692; J0696; J0885; J1642; J1940; J2405; J3490; J7030; G0480